=== PATIENT | male | born 1995 | race Caucasian/White ===

== ENCOUNTER 2022-07-25 08:07 | Emergency (ER) | payer OTHER, SELFPAY ==
--- NOTE | 2022-07-25 08:08 | ED.URI ---
HPI - URI/Sore Throat General Chief Complaint: Upper Respiratory Infection Stated Complaint: sore throat Time Seen by Provider: 07/25/22 08:18 Source: patient, RN notes reviewed and old records reviewed Mode of arrival: ambulatory Limitations: no limitations History of Present Illness HPI Narrative: 26-year-old male presents to the [facility] with complaints of a sore throat since yesterday. Reports 102 fever yesterday. No sick contacts Painful swallowing No treatment prior to arrival MD elicited complaint: fever and sore throat Onset (ago): day(s) (1) Related Data Allergies Allergy/AdvReac Type Severity Reaction Status Date / Time amoxicillin Allergy Mild Unverified 12/20/11 18:10 azithromycin Allergy Mild Unverified 12/20/11 18:10 sulfamethoxazole Allergy Mild Unverified 12/20/11 18:10 trimethoprim Allergy Mild Unverified 12/20/11 18:10 Review of Systems Review of Systems: All systems reviewed & are unremarkable except as noted in HPI and below Constitutional: Constitutional: Reports no additional constitutional complaints Eyes: Eyes: Reports no additional eye complaints ENT: Reports as per HPI and Reports sore throat Cardiovascular: Cardiovascular: Reports no additional cardiovascular complaints, Denies chest pain and Denies dyspnea Respiratory: Respiratory: Reports no additional respiratory complaints, Denies chest congestion, Denies cough and Denies dyspnea Gastrointestinal: Gastrointestinal: Reports no additional gastrointestinal complaints, Denies abdominal pain, Denies nausea and Denies vomiting Musculoskeletal: Musculoskeletal: Reports no additional musculoskeletal complaints Integumentary/Breasts: Skin/Breast: Reports system reviewed and no additional complaints, except as docu Neurologic: Reports system reviewed and no additional complaints, except as documented Psychiatric: Psychiatric: Reports no additional psychiatric complaints Allergic/Immunologic: Allergic/Immunologic: Reports no additional allergic/immunologic complaints [facility] Past Medical History Medical History (Updated 07/25/22 @ 08:27 by Felisha Mcmahan APRN) Patient denies medical problems Surgical History Surgical History (Updated 07/25/22 @ 08:23 by Felisha Mcmahan APRN) No pertinent past surgical history Social History Social History (Updated 07/25/22 @ 08:23 by Felisha Mcmahan APRN) Gender identity (if verbalized by the patient): Male Comments At the time of my signature, I reviewed and agree with the nursing past medical, surgical, social, and family history. There is no relevant family history pertinent to the patient complaint. Exam Const: General: cooperative, comfortable, no acute distress, well developed, alert, ill appearing acutely (Mild) and well nourished Nutritional Appearance: well nourished Orientation/consciousness: patient oriented x3 Limitations: no limitations HENMT: Head: normal to inspection Ears: hearing grossly normal bilaterally and external ears normal Face/Nose/Sinus: Normal external nose present, Normal nares present, Normal nasal mucous membranes and turbinates present and normal facial exam Face and sinus: normal facial exam Mouth: Yes Normal oral and palatal mucosa present, Yes lip normal and Yes moist mucous membranes Throat: uvula midline, abnormal tonsil bilateral erythema, exudates and hypertrophy 3+, posterior oropharynx abnormal erythema and exudates; no cobblstoning and no edema and uvular edema (With increased erythema) Eyes: General: appearance normal, both eyes and all related structures Alignment and Position: alignment normal Periorbital: periorbital findings normal Conjunctivae: conjunctivae normal Pupils: Equal, round and reactive pupils present EOM: EOMs intact bilaterally Neck: Neck: normal visual inspection, full ROM, no meningeal signs and lymphadenopathy (Bilateral submandibular) Chest: Chest palpation & inspection: normal inspection of the chest Resp: Effort
[2022-07-25 08:18] VITALS: BP 134/77; PULSE 107; RESP 16; TEMP 37.8; O2SAT 98
[2022-07-25 08:19] VITALS: BP 134/77; PULSE 107; RESP 16; TEMP 37.8; O2SAT 98
== END 2022-07-25 08:45 | disposition home or self-care (01) ==
PROVIDERS: Emergency Provider Nurse Practitioner; PCP Family Medicine
DX: J02.0 Streptococcal pharyngitis (principal)
CPT/HCPCS: 87880; 99213; G0463

== ENCOUNTER 2024-02-13 08:14 | Emergency (ER) | payer OTHER, SELFPAY ==
[2024-02-13 08:26] VITALS: BP 131/79; PULSE 81; RESP 16; TEMP 36.7; O2SAT 99
--- NOTE | 2024-02-13 08:33 | ED.URI ---
HPI - URI/Sore Throat General Chief Complaint: Upper Respiratory Infection Stated Complaint: congestion,cough Time Seen by Provider: 02/13/24 08:33 Source: patient Mode of arrival: ambulatory Limitations: no limitations History of Present Illness HPI Narrative: 28 yo M presents with c/o sinus congestion, sinus pressure, PND for approx. 2 wks. Past few days symptoms worse with cough. Coughing up green sputum and blowin green drainage from nose. Denies CP/SOB. Taking OTC meds to treat symptoms. Concerned for sinus infection. All systems reviewed and negative except as noted above. Related Data Allergies Allergy/AdvReac Type Severity Reaction Status Date / Time amoxicillin Allergy Mild Hives Verified 02/13/24 08:34 azithromycin Allergy Mild hives Verified 02/13/24 08:34 sulfamethoxazole Allergy Mild Rash Verified 02/13/24 08:34 trimethoprim Allergy Mild Rash Verified 02/13/24 08:34 Review of Systems Review of Systems: CONSTITUTIONAL: Denies fever, chills, or sweats. EYES: Denies visual changes, redness, or discharge. ENT: Reports rhinorrhea, congestion, sinus pressure, postnasal drainage. Denies sore throat, or otalgia. CARDIOVASCULAR: Denies chest pain, palpitations, or edema. RESPIRATORY: reports cough . Denies dyspnea. GASTROINTESTINAL: Denies abdominal pain, nausea, vomiting, or diarrhea. GENITOURINARY: Denies dysuria or hematuria. SKIN: Denies rash or itching. MUSCULOSKELETAL: Denies back pain, joint pain, or myalgia. NEUROLOGIC: Denies headache, numbness, or weakness. PSYCHIATRIC: Denies anxiety or depression. All other systems reviewed are negative, except as documented in HPI. [facility] Past Medical History Medical History (Updated 02/13/24 @ 08:43 by Navya Barron NP) Allergic rhinitis Anxiety Surgical History Surgical History (Updated 07/25/22 @ 08:23 by Feilsha Mcmahan APRN) No pertinent past surgical history Family History Family History (Updated 01/23/23 @ 09:39 by Bhumika Gutierrez, PA-C) Grandparent Diabetes mellitus Social History Social History (Updated 01/23/23 @ 09:39 by Radha Rivera RN) Years smoked: 2 Smoking status: Never smoker Alcohol intake: current Drinks per week: 3 Gender identity (if verbalized by the patient): Male Comments At time of signature, agree with nursing past medical, surgical, social and family history. There is no relevant family history pertinent to the presenting complaint. Exam Narrative: GENERAL: This is a well-nourished, well-developed patient, in no apparent distress. HEAD: normocephalic, atraumatic. EYES: PERRL. Sclera clear/white. Vision is grossly intact. EARS: External ears normal, auditory canals clear and without drainage, clear fluid bilateral TMs without erythema or perforation. Hearing grossly intact. NOSE: External nose normal with moderate congestion, purulent nasal drainage, erythema swelling to bilateral nares. maxillary and frontal sinus tenderness on palpation THROAT: Mucous membranes moist, Erythema with postnasal drainage NECK: Neck supple, non-tender without lymphadenopathy, masses or thyromegaly. CARDIOVASCULAR: Regular rate and rhythm without murmurs, gallops, or rubs. RESPIRATORY: Clear to auscultation. Breath sounds equal bilaterally. No wheezes, rales, or rhonchi. SKIN: warm, Dry, intact with no suspicious lesions or rash, good texture and turgor. NEURO: awake, alert, and oriented to person, place and time. There were no obvious focal neurologic abnormalities. EXTREMITIES: No joint tenderness, effusion, or edema noted. Course Course Level of Care: Express Care Visit Vital Signs Vital signs: Vital Signs Temperature 36.7 C 02/13/24 08:26 Pulse Rate 81 02/13/24 08:26 Respiratory Rate 16 02/13/24 08:26 Blood Pressure 131/79 02/13/24 08:26 Pulse Oximetry 99 02/13/24 08:26 Oxygen Delivery Room Air 02/13/24 08:26 Temperature 36.7 C 02/13/24 08:26 Pulse Rate 8
== END 2024-02-13 08:47 | disposition home or self-care (01) ==
PROVIDERS: Emergency Provider Nurse Practitioner Family; PCP Family Medicine
DX: J01.90 Acute sinusitis, unspecified (principal); F41.9 Anxiety disorder, unspecified
CPT/HCPCS: 99213; G0463